=== PATIENT | female | born 1970 | race Caucasian/White ===

== ENCOUNTER 2021-04-26 15:27 | Emergency (ER) | payer OTHER, SELFPAY ==
[2021-04-26 15:35] VITALS: BP 137/67; PULSE 69; RESP 16; TEMP 36; O2SAT 100; BMI 29.2
[2021-04-26 16:00] VITALS: BP 125/68; PULSE 60; RESP 16; TEMP 36.7; O2SAT 98
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
[2021-04-26] MEDS: Acetaminophen 325 MG TABLET 650 MG PO (17:02)
== END 2021-04-26 17:09 | disposition home or self-care (01) ==
PROVIDERS: Emergency Provider Emergency Medicine; PCP Internal Medicine
DX: S06.0X0A Concussion without loss of consciousness, initial encounter (principal); Y04.2XXA Assault by strike against or bumped into by another person, initial encounter; Y93.F9 Activity, other caregiving; Y92.238 Other place in hospital as the place of occurrence of the external cause; Y99.0 Civilian activity done for income or pay
CPT/HCPCS: 99283; 99284

== ENCOUNTER 2021-05-02 12:01 | Emergency (ER) | payer OTHER, SELFPAY ==
--- NOTE | ~2021-05-02 | CT_ITS ---
EXAMINATION: CT HEAD WITHOUT CONTRAST CLINICAL INFORMATION: Visual disturbance and dizziness. Head injury. COMPARISON: None TECHNIQUE: Contiguous axial imaging was performed from the skull base to vertex without intravenous administration of contrast. This CT examination was performed using dose optimization techniques as appropriate, variously including the following: *Automated exposure control *Adjustment of mA and/or kV according to patient size (this includes techniques or standardized protocols for targeted exams where dose is matched to indication/reason for exam; i.e. extremities or head) *Use of iterative reconstruction technique DLP: 622 mGy-cm FINDINGS: There is no evidence of acute intracranial hemorrhage or territorial infarction. No abnormal mass effect or midline shift is seen. Lowry to white matter differentiation is well preserved. No extra-axial fluid collections are identified. The ventricles are normal in size. There is no abnormal attenuation within the brain parenchyma. The osseous structures and soft tissues are normal. The mastoid air cells and visualized portions of the paranasal sinuses are well aerated. CT/CT head/brain wo con IMPRESSION: No acute intracranial process seen.
[2021-05-02 13:20] VITALS: BP 129/72; PULSE 64; RESP 18; TEMP 35.7; O2SAT 98; BMI 29.2
[2021-05-02 19:55] VITALS: BP 116/62; PULSE 56; RESP 18; TEMP 36.5; O2SAT 97
--- NOTE | 2021-05-02 19:56 | PC.NURSE ---
patient a&ox3, vss, pt being discharged as ct scan was performed,
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
[2021-05-02 20:17] VITALS: BP 122/74; PULSE 74; RESP 16; TEMP 36.3; O2SAT 97
== END 2021-05-02 20:18 | disposition home or self-care (01) ==
PROVIDERS: Emergency Provider Emergency Medicine Emergency Medical Services; PCP Internal Medicine
DX: R42 Dizziness and giddiness (principal); S06.0X0A Concussion without loss of consciousness, initial encounter; Y04.2XXA Assault by strike against or bumped into by another person, initial encounter; Y93.89 Activity, other specified; Y92.531 Health care provider office as the place of occurrence of the external cause; Y99.0 Civilian activity done for income or pay
CPT/HCPCS: 70450; 99284

== ENCOUNTER → 2021-05-03 09:20 | Outpatient (BNVA) | payer OTHER, SELFPAY | PROVIDERS: PCP Internal Medicine; Visit Provider Physician Assistant | DX: S06.9X0A Unspecified intracranial injury without loss of consciousness, initial encounter (principal); W50.0XXA Accidental hit or strike by another person, initial encounter | CPT/HCPCS: 99203 ==

== ENCOUNTER → 2021-05-10 09:58 | Outpatient (BNVA) | payer OTHER, SELFPAY | PROVIDERS: PCP Internal Medicine; Visit Provider Physician Assistant Medical | DX: S06.9X0A Unspecified intracranial injury without loss of consciousness, initial encounter (principal); W22.09XA Striking against other stationary object, initial encounter | CPT/HCPCS: 99213 ==

== ENCOUNTER → 2021-05-17 12:27 | Outpatient (BNVA) | payer OTHER, SELFPAY | PROVIDERS: PCP Internal Medicine; Visit Provider Physician Assistant Medical | DX: S06.0X0A Concussion without loss of consciousness, initial encounter (principal); W22.09XA Striking against other stationary object, initial encounter | CPT/HCPCS: 99213 ==

== ENCOUNTER → 2021-06-02 09:10 | Outpatient (BNVA) | payer OTHER, SELFPAY | PROVIDERS: PCP Internal Medicine; Visit Provider Physician Assistant Medical | DX: S06.9X0D Unspecified intracranial injury without loss of consciousness, subsequent encounter (principal); W31.89XD Contact with other specified machinery, subsequent encounter | CPT/HCPCS: 99213 ==

== ENCOUNTER → 2021-06-26 12:59 | Outpatient (BNVA) | payer OTHER, SELFPAY | PROVIDERS: PCP Internal Medicine; Visit Provider Physician Assistant Medical | DX: S06.9X0D Unspecified intracranial injury without loss of consciousness, subsequent encounter (principal); X58.XXXD Exposure to other specified factors, subsequent encounter; F07.81 Postconcussional syndrome | CPT/HCPCS: 99213 ==

== ENCOUNTER 2021-07-10 14:00 | Outpatient (RCR) | payer OTHER, SELFPAY ==
--- NOTE | 2021-05-04 11:06 | MHC.PT.EP ---
[facility] [place] Office [place] Office [place] Office [address] Avery Nogueira [address] [phone] F: [phone] F: [phone] F: [phone] F: [phone] Physical Therapy Plan of Care Date of Evaluation: Date of Surgery: Diagnosis: vertigo Assessment: The patient is having severe oculomotor impairments likely from a concussion. These include double vision. poor visual tracking, VOR deficits, dizziness, headaches, and ocular pain, and poor visual based concentration. The patient also has significant imbalance in static standing and worse in dynamic standing. She was negative for positional vertigo. She has dizziness and headaches with eye movement, and with visual tracking. She was unable to focus on my moving finger and she had poor activity tolerance today. Her symptoms were worsening with cervical flexion, which her job requires her to do for hours a time. She is not fit to do her job at this point due to the static cervical flexion posture it requires, and the visual focus it requires as well. The patient is an excellent candidate for skilled PT. Frequency and Duration: The patient will be seen 2x/week x 4 weeks. Short Term Goals: 1. The patient to be able to demonstrate initial HEP to improve compliance and carryover. Assisted Goals: 1. Pt to be able to track visual stimulus without fatigue or pain in her eyes. 2. Pt to be able to balance without visual fixation for greater than 2 min to show improved static balance 3. Pt to be able to balance on uneven ground safely without LOB to show safety with dynamic balance. Treatment Plan: Modalities to reduce pain, spasms and effusion. Manual therapy to restore motion and function. Therapeutic exercise to improve strength and flexibility. Neuromuscular re-education for posture and balance. Therapeutic activities to return to functional activities of daily living. Electronically signed by: Karey Medina PT DPT Please sign and return to therapist. Thank you for your referral.
== END 2021-09-28 12:15 | disposition home or self-care (01) ==
LOC: HO.PT 14:00
PROVIDERS: PCP Internal Medicine; Visit Provider Physician Assistant Medical
DX: R42 Dizziness and giddiness (principal); S06.9X0D Unspecified intracranial injury without loss of consciousness, subsequent encounter
CPT/HCPCS: 97110; 97112; 97140; 97162

== ENCOUNTER → 2021-07-11 12:48 | Outpatient (BNVA) | payer OTHER, SELFPAY | PROVIDERS: PCP Internal Medicine; Visit Provider Physician Assistant Medical | DX: F07.81 Postconcussional syndrome (principal) | CPT/HCPCS: 99213 ==

== ENCOUNTER → 2021-08-15 09:04 | Outpatient (BNVA) | payer OTHER, SELFPAY | PROVIDERS: PCP Internal Medicine; Visit Provider Physician Assistant Medical | DX: F07.81 Postconcussional syndrome (principal) | CPT/HCPCS: 99213 ==

== ENCOUNTER 2021-11-04 12:57 | Emergency (ER) | payer OTHER, SELFPAY ==
[2021-11-04 13:18] VITALS: BP 118/54; BP 133/92; PULSE 73; PULSE 75; RESP 16; TEMP 36.7; O2SAT 100; O2SAT 98; BMI 28.3
--- NOTE | 2021-11-04 13:24 | ED_ITS ---
HPI - Allergic Reaction General Chief complaint: Allergic Reaction Stated complaint: ?ALLEGIC REACTION Time Seen by Provider: 11/04/21 13:22 Source: patient Mode of arrival: EMS Limitations: no limitations History of Present Illness HPI narrative: 50 y/o presents for lower lip swelling that started today just before noon. Patient felt her right face swelling her lower lip swelling, she felt her throat swelling, and she felt short of breath. She got epi. She has allergies to latex and sulfa, was not in contact with these things. She has no environmental or food allergies. This has happened to her before, and the etiology of her angioedema is uncertain. She sees Dr Quispe, an cord splicer at [facility]. She takes iqgl-zxe-vjdaowm allergy pills that he prescribes. 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 No prior history of Nickolas inhibitors, patient has never taken lisinopril. Her lip swelling is better now, she does not feel short of breath, no chest pain, no wheezing, no nausea. She has a little lightheaded. States when her daughter looked in her throat, she had a large right tonsil. Mild pain with swallowing. Related Data Previous Rx's Medication Instructions Recorded epinephrine 0.3 mg/0.3 mL 0.3 mg (0.3 mL) IM Q10M PRN #2 ea 11/04/21 injection, auto-injector famotidine 20 mg tablet 20 mg PO DAILY 14 Days #14 tab 11/04/21 penicillin V potassium 500 mg 500 mg PO TID 10 Days #30 tab 11/04/21 tablet prednisone 20 mg tablet 60 mg PO DAILY 5 Days #15 tab 11/04/21 Allergies Allergy/AdvReac Type Severity Reaction Status Date / Time Sulfa (Sulfonamide Allergy Unknown HIVES Verified 04/26/21 15:34 Antibiotics) LATEX Allergy Unknown RASH Uncoded 10/12/19 00:00 Review of Systems Constitutional: Constitutional: Denies body ache(s), Denies chills, Denies fatigue, Denies fever(s), Denies headache(s), Denies malaise and Denies weakness Eyes: Eyes: Denies diplopia ENT: Denies vertigo, Denies dizziness, Denies otalgia, Denies headache(s), Reports lip swelling, Denies mouth pain, Denies post nasal drip, Denies sinus pain, Denies sinus pressure, Reports sore throat and Reports throat swelling Cardiovascular: Cardiovascular: Denies chest pain, Denies syncope, Denies leg edema, Reports lightheadedness, Denies Loss of Consciousness, Denies palpitations and Denies dyspnea Respiratory: Respiratory: Denies chest congestion, Denies cough and Denies dyspnea Gastrointestinal: Gastrointestinal: Denies abdominal pain, Denies he matochezia, Denies constipation, Denies diarrhea, Denies nausea and Denies vomiting Musculoskeletal: Musculoskeletal: Reports no additional musculoskeletal complaints Neurologic: Denies confusion, Denies vertigo, Denies dizziness, Denies syncope, Denies headache(s) and Denies weakness Psychiatric: Psychiatric: Denies anxiety, Denies confusion and Denies depres martha Endocrine: Endocrine: Denies fatigue and Denies palpitations Allergic/Immunologic: Allergic/Immunologic: Reports lip swelling and Reports throat swelling PMFSH Past Medical History Medical History No known health problems Social History Social History Alcohol intake: current Alcohol intake frequency: holidays/special occasions only Patient Tobacco Use Status: Never used Tobacco Advance Directives: No Advance Directives Information Provided: Yes Physical Exam Vital Signs: Vital Signs: Last Vital Signs Temp 98.7 F 11/04/21 15:36 Pulse 73 11/04/21 15:36 Resp 16 11/04/21 15:36 BP 119/74 11/04/21 15:36 Pulse Ox 98 11/04/21 15:36 BMI result Body Mass Index 28.3 Const: General: no acute distress, well developed, alert and awake; No confusion Nutritional Appearance: well nourished Orientation/consciousness: patient oriented x3 and No confusion Limitations: no limitations HENMT: Head: Yes normal to inspection, Yes normocephalic and Yes atraumatic Ears: hearing grossly normal bilaterally, external ears normal, TM's normal chacha aterally and EAC's normal General nose exam: Normal external nose present Face and sinus: Yes normal facial exam and Yes sinuses nontender Mouth: Normal oral and palatal mucosa present Throat: Yes uvula midline, Yes abnormal tonsil (large right tonsil with exudate) and Yes posterior oropharynx abnormal Eyes: Conjunctivae: conjunctivae normal Pupils: Equal, round and reactive pupils present EOM: EOMs intact bilaterally Neck: Neck: Yes full ROM, Yes no lymphadenopathy and Yes supple Resp: Effort & Inspection: normal respiratory effort and able to speak in complete sentences Auscultation: clear to auscultation bilaterally, no crackles, no rales, no rhonchi and no wheezes Cardio: Rate: regular rate Rhythm: regular rhythm Heart sounds: S1 normal heart sound present and S2 normal heart sound present GI: Inspection: Yes normal to inspection Palpation (GI): Soft to palpation, nontender, no guarding and not rigid Percussion: Yes normal to percussion Auscultation: normal bowel sounds Skin: General skin exam: no rashes or lesions noted Neuro: General: patient oriented x3 and No confusion Cranial nerves: Yes Equal, round and reactive pupils present Extrem: General: Yes normal to inspection and Yes full ROM Psych: Appearance: grossly normal Affect: normal affect Attitude: cooperative Thought process: Normal thought process present Course Course Course Narrative: 50-year-old female presents for angioedema, she got epinephrine at noon today. States now she has no shortness of breath, no wheezing, her lip swelling has reduced significantly, she has no hoarseness. On exam patient is mildly swollen right lower lip, lungs clear to auscultation bilaterally, right tonsil hypertrophic, erythematous, with exudate. Patient has been observed here in the ER for 3-1/2 hours, her blood pressure is stable, she has strep negative, labs are negative. 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 Discussed this with patient, counseled her to discuss this with her cord splicer. Will start antibiotics for patient, will do throat culture, counseled patient to call Hospital in 3 days, if throat culture is negative, patient can stop anti biotics. Gave prednisone, famotidine, counseled nwyf-vbe-nvhjexl Benadryl. Counseled to follow-up with cord splicer on Saturday. Gave return precautions of shortness of breath, wheezing, facial or lip swelling, trouble breathing, return to emergency room. Also represcribed to epi pens. Patient verbalized agreement understanding of plan. MDM - Allergic Reaction Lab Data Result diagrams: 11/04/21 14:19 11/04/21 14:19 Labs: Lab Results 11/04/21 11/04/2111/04/22 Range/Units 14:19 14:19 14:19 WBC 8.3 (4.8-10.8) X10*3/uL RBC 4.14 L (4.20-5.50) X10*6/uL Hgb 12.0 (12.0-16.0) g/dl Hct 37.2 (37.0-47.0) % MCV 89.9 (80.0-98.0) fL MCH 29.0 (27.0-33.0) pg MCHC 32.3 (31.0-35.0) g/dl RDW 13.7 (11.0-16.0) % Plt Count 190 (160-400) X10*3/uL MPV 11.4 (9.4-12.3) fL Immature Gran % (Auto) 0.2 (0.0-0.4) % Neut % (Auto) 76.9 H (45-73) % Lymph % (Auto) 12.8 L (20-40) % Rolette % (Auto) 7.9 (2-11) % Eos % (Auto) 1.7 (0-4) % Baso % (Auto) 0.5 (0-2) % Lymph # (Auto) 1.1 L (1.2-4.9) X10*3/uL Rolette # (Auto) 0.7 (0.1-1.2) X10*3/uL Eos # (Auto) 0.1 (0.0-0.4) X10*3/uL Baso # (Auto) 0.0 (0.0-0.2) X10*3/uL Abs Immat Gran (auto) 0.02 (0.00-0.03) X10*3/uL Absolute Neuts (auto) 6.4 (2.0-8.3) x10*3/uL Absolute Nucleated RBC 0.000 (0.0-0.012) X10*3/uL Nucleated RBC % (auto) 0.0 (0.0-0.2) /100WBC Sodium 137 (135-145) mmol/L Potassium 4.6 (3.3-5.1) mmol/L Chloride 104 (96-108) mmol/L Carbon Dioxide 25 (22-29) mmol/L Anion Gap 13 (12-20) BUN 13 (9-16) mg/dL Creatinine 0.66 (0.5-1.4) mg/dL Estim Creat Clear Calc 103.2 Estimated GFR > 60 Random Glucose 101 (60-115) mg/dL Calcium 8.7 (8.4-10.2) mg/dL Total Bilirubin 0.5 (0.0-1.0) mg/dL AST 16 (5-31) U/L ALT 8 (0-31) U/L Alkaline Phosphatase 55 (39-117) U/L Total Protein 6.5 (6.5-8.0) g/dL Albumin 3.8 (3.5-5.0) g/dL Beta HCG, Quant < 2 mIU/mL S. pyogenes GrpA FELICIA Negative (Negative) Discharge Plan Discharge Clinical Impression: Allergic reaction, Acute tonsillitis, Angio-edema Patient Disposition: Home, Self-Care Instructions: Tonsillitis (ED), Angioedema (ED) Additional Instructions: Please take penicillin as prescribed. Please take prednisone in the mornings. Please fill your prescription for epi pens and have 1 at home and 1 in the car. I will prescribe famotidine, if that is the same medication as you take cezt-xyh-qiqxdhz, you do not have to take it. Take Benadryl at night oovf-ikw-hdmdcho. If you feel short of breath, her throat is swelling, if you have trouble breathing, call 911 and use her EpiPen. if you have any other new or concerning symptoms, please return to the emergency room Please call your cord splicer Saturday morning for follow-up appointment from today's visit, and to investigate if you might have C1 esterase deficiency Prescriptions: New epinephrine 0.3 mg/0.3 mL auto-injector 0.3 mg IM Q10M PRN (Reason: anaphylaxis) Qty: 2 0RF Rx Instructions: for 2 doses penicillin V potassium 500 mg tablet 500 mg PO TID 10 Days Qty: 30 0RF prednisone 20 mg tablet 60 mg PO DAILY 5 Days Qty: 15 0RF famotidine 20 mg tablet 20 mg PO DAILY 14 Days Qty: 14 0RF Interventions: ED Discharge Assessment Last Done: 11/04/21 16:25
--- NOTE | 2021-11-04 13:41 | ECG_ITS ---
Test Reason : SWEELING Blood Pressure : / mmHG Vent. Rate : 070 BPM Atrial Rate : 070 BPM P-R Int : 136 ms QRS Dur : 076 ms QT Int : 422 ms P-R-T Axes : 049 047 006 degrees QTc Int : 455 ms Sinus rhythm with marked sinus arrhythmia Otherwise normal ECG No previous ECGs available Referred By: Joyce Tse Electronically Signed By:Bobo Kirkpatrick
[2021-11-04] MEDS: methylPREDNISolone Sod Succ 125 MG/2 ML VIAL IVPUSH (14:12)
[2021-11-04] MEDS: Famotidine/PF 20 MG/2 ML VIAL IVPUSH (14:12)
[2021-11-04] MEDS: diphenhydrAMINE HCL 50 MG/ML VIAL 25 MG IVPUSH (14:12)
[2021-11-04] MEDS: 0.9 % Sodium Chloride 1,000 ML 999 ML IV (14:13)
[2021-11-04 14:22] VITALS: BP 113/57; PULSE 61; RESP 18; TEMP 36.7; O2SAT 96
[2021-11-04 14:23] LABS: MANUAL DIFF FLAG NO
[2021-11-04 14:26] LABS: Basophils Percent Auto 0.5 % (0-2); Eosinophils Absolute Auto 0.1 X10*3/uL (0.0-0.4); Eosinophils Percent Auto 1.7 % (0-4); Hematocrit 37.2 % (37.0-47.0); Imm Gran Abs Auto 0.02 X10*3/uL (0.00-0.03); Imm Gran Pct Auto 0.2 % (0.0-0.4); Lymphocytes Absolute Auto 1.1 X10*3/uL (1.2-4.9); Lymphocytes Percent Auto 12.8 % (20-40); Mean Corpuscular HGB Conc 32.3 g/dl (31.0-35.0); Mean Corpuscular Volume 89.9 fL (80.0-98.0); Mean Platelet Volume 11.4 fL (9.4-12.3); Monocytes Absolute Auto 0.7 X10*3/uL (0.1-1.2); Monocytes Percent Auto 7.9 % (2-11); Neutrophils Absolute Auto 6.4 x10*3/uL (2.0-8.3); Neutrophils Percent Auto 76.9 % (45-73); Platelet Count 190 X10*3/uL (160-400); Red Blood Count 4.14 X10*6/uL (4.20-5.50); Red Cell Distribution Width 13.7 % (11.0-16.0); White Blood Count 8.3 X10*3/uL (4.8-10.8)
[2021-11-04 14:31] LABS: IDNOW Serial# 9DD0AD1C; Strep A Nucleic Acid Negative (Negative)
[2021-11-04] MEDS: Lidocaine HCl Viscous 2 % 15 ML SOLUTION MUCOUS MEM (14:41)
[2021-11-04 14:47] LABS: Alanine Aminotransferase 8 U/L (0-31); Albumin Level 3.8 g/dL (3.5-5.0); Alkaline Phosphatase 55 U/L (39-117); Anion Gap 13 (12-20); Aspartate Amino Transferase 16 U/L (5-31); Bilirubin Total 0.5 mg/dL (0.0-1.0); Blood Urea Nitrogen 13 mg/dL (9-16); Calcium 8.7 mg/dL (8.4-10.2); Carbon Dioxide 25 mmol/L (22-29); Chloride 104 mmol/L (96-108); Creatinine Clr Calc Pharmacy 103.2; Estimated Glomerular Filt Rate > 60; Glucose Random 101 mg/dL (60-115); Potassium 4.6 mmol/L (3.3-5.1); Sodium 137 mmol/L (135-145); Total Protein 6.5 g/dL (6.5-8.0)
[2021-11-04 14:48] LABS: HCG Quantitative < 2 mIU/mL
[2021-11-04 15:36] VITALS: BP 119/74; PULSE 73; RESP 16; TEMP 37.1; O2SAT 98
--- NOTE | 2021-11-04 15:44 | PC.NURSE ---
Pt alert and oriented x4, calm and cooperative. Pt denies pain. Pt denies difficulty swallowing or talking, no tongue swelling noted. Pt denies SOB or trouble breathing. Pt educate don discharge and meds to take by PA and RN and stated an understansing. IV removed. Vitals stable. pt ambulated out of ER with friend.
== END 2021-11-04 16:30 | disposition home or self-care (01) ==
PROVIDERS: Physician Assistant; Emergency Provider Emergency Medicine Emergency Medical Services; PCP Internal Medicine
DX: J03.90 Acute tonsillitis, unspecified (principal); T78.3XXA Angioneurotic edema, initial encounter; T78.40XA Allergy, unspecified, initial encounter; X58.XXXA Exposure to other specified factors, initial encounter
CPT/HCPCS: 36415; 80053; 84702; 85025; 87071; 87651; 93005; 96361; 96374; 96375; 99284; J1200; J2930